=== PATIENT | female | born 1990 | race Caucasian/White ===

== ENCOUNTER 2020-02-29 20:28 | Inpatient (IN) ==
[2020-02-29] MEDS ORDERED: ONDANSETRON 4 MG/2 ML VIAL IV ONE (20:47)
[2020-02-29] MEDS ORDERED: BUTORPHANOL 2 MG/ML VIAL IV ONE (20:47)
[2020-02-29] MEDS ORDERED: TERBUTALINE 1 MG/1 ML VIAL SUBCUT ONE (20:47)
[2020-02-29] MEDS ORDERED: TERBUTALINE 1 MG/1 ML VIAL ONE (20:51)
[2020-02-29 20:53] LABS: Apearance,Urine CLEAR (Clear); Bilirubin,Urine Negative (Negative); Blood, Urine Moderate mg/dL (Negative); Glucose,Urine (UA) Negative (Negative); Ketones,Urine Negative (Negative); Nitrite,Urine Negative (Negative); Protein,Urine Negative; RBC,Urine 19 /HPF (0-4); Squamous Epithelial Cell,Urine Occasional /HPF (0-10); Urine Color Yellow (Yellow); Urine Specific Gravity 1.003 (1.001-1.035); Urine Urobilinogen < 2.0 EU/DL (0.2-1.0)
[2020-02-29] MEDS ORDERED: LACTATED RINGERS 1,000 ML IV SCH ×2 (21:00→23:30)
[2020-02-29] MEDS ORDERED: CITRIC ACID/SODIUM CITRATE 30 ML UDCUP PO ONE (21:41)
[2020-02-29] MEDS ORDERED: OXYTOCIN 20 UNIT in SODIUM CHLORIDE 0.9% 1,000 ML IV ONE ×2 (21:41→23:11)
[2020-02-29] MEDS ORDERED: OXYTOCIN 10 UNIT/ML VIAL IM ONE (21:41)
[2020-02-29] MEDS ORDERED: FAMOTIDINE 20 MG/2 ML VIAL IV ONE (21:41)
[2020-02-29] MEDS ORDERED: OXYTOCIN/LR 30 UNIT/1,000 ML BAG IV ONE (21:41)
[2020-02-29] MEDS ORDERED: CLINDAMYCIN INJ 900 MG in PREMIX 1 EACH IV ONE (21:42)
[2020-02-29 21:59] LABS: Basophils % 0.2 % (0.0-0.8); Eosinophils # 0.1 10*3/uL (0.0-0.87); Eosinophils % 0.4 % (0.00-10.9); Hematocrit 34.7 VOL% (35.7-47.0); Hemoglobin 11.1 GM/DL (12.0-16.0); Immature Granulocytes % 0.6 %; Immature Granulocytes Absolute 0.09 #; Lymphocytes # 4.1 10*3/uL (1.4-4.0); Lymphocytes % 25.6 % (21.3-54.2); Mean Corpuscular Volume 91.1 FL (87-102); Monocytes % 5.2 % (1.7-12.7); Platelet Count 258 T/CUMM (130-400); Red Blood Count 3.81 MC/CUMM (3.8-5.5); Red Cell Distribution Width 12.4 % (9.3-17.3); White Blood Count 16.1 T/CUMM (4-12)
[2020-02-29 22:18] LABS: Albumin 2.5 G/DL (3.4-5.0); Bilirubin,Total 0.5 MG/DL (0.2-1.0); Calcium 8.5 MG/DL (8.5-10.1); Osmolality,Calculated 272.5 MOS/KG (273-304); Total Protein 6.2 G/DL (6.4-8.3)
[2020-02-29 22:22] LABS: Barbiturates Screen,Urine Negative (Negative); Benzodiazepines Screen,Urine Negative (Negative); Cannabinoid Screen,Urine Negative (Negative); Opiate Screen,Urine Negative (Negative); Phencyclidine Screen,Urine Negative (Negative)
[2020-02-29] MEDS ORDERED: ACETAMINOPHEN 325 MG TABLET PO PRN (23:11)
[2020-02-29] MEDS ORDERED: RHO(D) IMMUNE GLOBULIN 300 MCG SYRINGE IM ONE (23:11)
[2020-02-29] MEDS ORDERED: SIMETHICONE CHEW 80 MG TABLET PO PRN (23:11)
[2020-02-29] MEDS ORDERED: ONDANSETRON 4 MG/2 ML VIAL IV PRN (23:11)
[2020-02-29] MEDS ORDERED: MAGNESIUM HYDROXIDE SUSP 30 ML UDCUP PO PRN (23:11)
[2020-02-29 23:15] LABS: Apearance,Urine CLEAR (Clear); Bilirubin,Urine Negative (Negative); Blood, Urine Negative (Negative); Glucose,Urine (UA) Negative (Negative); Ketones,Urine Negative (Negative); Nitrite,Urine Negative (Negative); Protein,Urine Negative; RBC,Urine <1 /HPF (0-4); Urine Color Straw (Yellow); Urine Specific Gravity 1.001 (1.001-1.035); Urine Urobilinogen < 2.0 EU/DL (0.2-1.0); WBC,Urine <1 /HPF (0-6)
[2020-02-29] MEDS ORDERED: MIDAZOLAM 2 MG/2 ML VIAL ONE (23:20)
[2020-02-29] MEDS ORDERED: BUPIVACAINE SPINAL 0.75% 2 ML AMP SPINAL ONE (23:20)
[2020-02-29] MEDS ORDERED: MORPHINE 10 MG/10 ML VIAL ONE (23:20)
[2020-02-29] MEDS ORDERED: ONDANSETRON 4 MG/2 ML VIAL ONE (23:20)
[2020-02-29] MEDS ORDERED: propofoL 200 MG/20 ML VIAL IV ONE (23:20)
[2020-02-29] MEDS ORDERED: PROMETHAZINE 25 MG/1 ML VIAL ONE (23:20)
[2020-02-29 23:21] LABS: Cord Arterial Blood HCO3 23.7 MMOL/L
[2020-02-29] MEDS ORDERED: PHENYLEPHRINE 1 MG/10 ML SYRINGE IV ONE (23:21)
[2020-02-29] MEDS ORDERED: KETOROLAC 30 MG/1 ML VIAL ONE (23:21)
[2020-02-29] MEDS ORDERED: LACTATED RINGERS 1,000 ML IV ONE (23:21)
[2020-02-29 23:24] LABS: Cord Venous Blood HCO3 24.5 MMOL/L; Cord Venous Blood PCO2 45.2 MMHG; Cord Venous Blood PO2 32.9
[2020-03-01] MEDS ORDERED: OXYTOCIN/LR 20 UNIT/1,000 ML BAG IV ONE (00:57)
[2020-03-01] MEDS ORDERED: KETOROLAC 30 MG/1 ML VIAL IV PRN (01:45)
[2020-03-01 02:54] LABS: Band Neutrophils 1 % (0-10); Eosinophils 1 % (0-10); Lymphocytes 21 % (20-55); Segmented Neutrophils 71 % (50-85)
[2020-03-01 02:55] LABS: Atypical Lymphocytes Few; Hypochromasia 1+; Platelet Estimate Normal; Polychromasia Few
[2020-03-01 02:56] LABS: Total Cells Counted 100
[2020-03-01] MEDS: CLINDAMYCIN INJ 50 ML IV SCH ×2 (05:59→14:35)
[2020-03-01 07:50] LABS: Basophils % 0.3 % (0.0-0.8); Eosinophils # 0.1 10*3/uL (0.0-0.87); Eosinophils % 0.4 % (0.00-10.9); Hematocrit 27.9 VOL% (35.7-47.0); Immature Granulocytes % 0.4 %; Immature Granulocytes Absolute 0.06 #; Lymphocytes # 3.9 10*3/uL (1.4-4.0); Lymphocytes % 26.7 % (21.3-54.2); Mean Corpuscular HGB Conc 32.6 GM/DL (32-36); Mean Corpuscular Volume 92.4 FL (87-102); Mean Platelet Volume 11.2 FL (9.6-12.0); Monocytes % 6.6 % (1.7-12.7); Neutrophils % 65.6 % (38.7-73.9); Red Cell Distribution Width 12.3 % (9.3-17.3); White Blood Count 14.6 T/CUMM (4-12)
[2020-03-01 07:51] LABS: Hemoglobin 9.1 GM/DL (12.0-16.0); Platelet Count 205 T/CUMM (130-400); Red Blood Count 3.02 MC/CUMM (3.8-5.5)
[2020-03-01 08:32] LABS: Hypochromasia 1+; Ovalocytes Slight; Platelet Estimate Adequate
[2020-03-01] MEDS: MULTIVITAMIN (PRENATAL) TABLET PO SCH (09:30)
[2020-03-01] MEDS: DOCUSATE SODIUM 100 MG CAPSULE PO SCH ×2 (09:30→21:00)
[2020-03-01] MEDS: METOCLOPRAMIDE 10 MG TABLET PO SCH ×2 (11:17→17:00)
[2020-03-01 14:48] LABS: Basophils % 0.1 % (0.0-0.8); Eosinophils # 0.1 10*3/uL (0.0-0.87); Eosinophils % 0.5 % (0.00-10.9); Hematocrit 29.8 VOL% (35.7-47.0); Hemoglobin 9.7 GM/DL (12.0-16.0); Immature Granulocytes % 0.4 %; Immature Granulocytes Absolute 0.05 #; Lymphocytes # 2.2 10*3/uL (1.4-4.0); Lymphocytes % 16.6 % (21.3-54.2); Mean Corpuscular HGB Conc 32.6 GM/DL (32-36); Mean Corpuscular Volume 91.1 FL (87-102); Mean Platelet Volume 11.3 FL (9.6-12.0); Monocytes % 6.5 % (1.7-12.7); Neutrophils % 75.9 % (38.7-73.9); Platelet Count 219 T/CUMM (130-400); Red Blood Count 3.27 MC/CUMM (3.8-5.5); Red Cell Distribution Width 12.4 % (9.3-17.3); White Blood Count 13.5 T/CUMM (4-12)
[2020-03-01] MEDS: IBUPROFEN 800 MG TABLET PO PRN (17:30)
[2020-03-02] MEDS: METOCLOPRAMIDE 10 MG TABLET PO SCH (01:35)
[2020-03-02 07:30] VITALS: BP 113/68
[2020-03-02] MEDS: MULTIVITAMIN (PRENATAL) TABLET PO SCH (08:44)
[2020-03-02] MEDS: IBUPROFEN 800 MG TABLET PO PRN (08:44)
[2020-03-02] MEDS: DOCUSATE SODIUM 100 MG CAPSULE PO SCH (08:44)
== END 2020-03-02 12:40 | disposition home or self-care (01) | DRG 540 ==
LOC: N.LDOUT 20:28 → N.LD 20:31 → N.OB 03-01 01:30
PROVIDERS: ADMIT Obstetrics & Gynecology; ATTEND Obstetrics & Gynecology

== ENCOUNTER 2020-12-05 10:33 | Inpatient (IN) ==
[2020-11-28 12:32] LABS: Bacteria,Urine Occasional /HPF (Few); Bilirubin,Urine Negative (Negative); Blood, Urine Negative (Negative); Glucose,Urine (UA) Negative (Negative); Ketones,Urine Negative (Negative); Mucus,Urine Occasional /LPF (Occasional); Nitrite,Urine Negative (Negative); Protein,Urine Negative; RBC,Urine 1 /HPF (0-4); Squamous Epithelial Cell,Urine Occasional /HPF (0-10); Urine Appearance Slightly Hazy (Clear); Urine Color Yellow (Yellow); Urine Specific Gravity 1.019 (1.001-1.035); Urine Urobilinogen < 2.0 EU/DL (0.2-1.0); WBC,Urine 1 /HPF (0-6)
[2020-11-28 12:43] LABS: Basophils % 0.4 % (0.0-0.8); Eosinophils # 0.2 10*3/uL (0.0-0.87); Eosinophils % 1.6 % (0.00-10.9); Hematocrit 44.3 VOL% (35.7-47.0); Hemoglobin 14.6 GM/DL (12.0-16.0); Immature Granulocytes % 0.5 %; Immature Granulocytes Absolute 0.05 #; Lymphocytes # 2.1 10*3/uL (1.4-4.0); Lymphocytes % 20.4 % (21.3-54.2); Mean Corpuscular Volume 93.3 FL (87-102); Mean Platelet Volume 10.3 FL (9.6-12.0); Monocytes % 4.9 % (1.7-12.7); Neutrophils % 72.2 % (38.7-73.9); Platelet Count 339 T/CUMM (130-400); Red Blood Count 4.75 MC/CUMM (3.8-5.5); White Blood Count 10.1 T/CUMM (4-12)
[2020-11-28 13:19] LABS: Albumin 3.8 G/DL (3.4-5.0); Bilirubin,Total 0.7 MG/DL (0.2-1.0); Osmolality,Calculated 276.5 MOS/KG (273-304); Potassium 4.1 MMOL/L (3.5-5.1); Risk Ratio 3.72
[~2020-12-05 10:33] MED LIST: AMPICILLIN/SULBACTAM 3,000 MG in SODIUM CHLORIDE 0.9% 100 ML IV ONE; CLINDAMYCIN INJ 900 MG in PREMIX 1 EACH IV ONE; LACTATED RINGERS 1,000 ML IV SCH; LEVOFLOXACIN INJ 500 MG in PREMIX 1 EACH IV ONE
[2020-12-05] MEDS ORDERED: ACETAMINOPHEN 500 MG TABLET PO ONE (11:01)
[2020-12-05] MEDS ORDERED: FAMOTIDINE 20 MG TABLET PO ONE (11:01)
[2020-12-05] MEDS ORDERED: DIAZEPAM 5 MG TABLET PO ONE (11:01)
[2020-12-05] MEDS ORDERED: ALBUTEROL/IPRATROPIUM 3 ML NEB RESP TX ONE (11:01)
[2020-12-05] MEDS ORDERED: fentaNYL 100 MCG/2 ML VIAL ONE ×2 (13:07→14:40)
[2020-12-05] MEDS ORDERED: MIDAZOLAM 2 MG/2 ML VIAL ONE (13:07)
[2020-12-05] MEDS ORDERED: BUPIVACAINE 0.25% 50 ML VIAL ONE (13:09)
[2020-12-05] MEDS ORDERED: ONDANSETRON 4 MG/2 ML VIAL ONE ×2 (13:41→14:37)
[2020-12-05] MEDS ORDERED: LIDOCAINE 2% 5 ML VIAL ONE (14:37)
[2020-12-05] MEDS ORDERED: propofoL 200 MG/20 ML VIAL IV ONE (14:37)
[2020-12-05] MEDS ORDERED: DEXAMETHASONE 4 MG/1 ML VIAL ONE (14:37)
[2020-12-05] MEDS ORDERED: SEVOFLURANE 1 UNIT/15 MINUTE INH ONE (14:37)
[2020-12-05] MEDS ORDERED: LACTATED RINGERS 1,000 ML IV ONE (14:37)
[2020-12-05] MEDS ORDERED: ROCURONIUM 50 MG/5 ML VIAL IV ONE (14:37)
[2020-12-05] MEDS ORDERED: PROMETHAZINE 25 MG/1 ML VIAL ONE (14:54)
[2020-12-05] MEDS ORDERED: GLYCOPYRROLATE 0.4 MG/2 ML VIAL ONE (15:41)
[2020-12-05] MEDS ORDERED: NEOSTIGMINE 10 MG/10 ML VIAL ONE (15:41)
[2020-12-05 16:00] LABS: Bacteria,Urine Occasional /HPF (Few); Bilirubin,Urine Negative (Negative); Blood, Urine Negative (Negative); Glucose,Urine (UA) Negative (Negative); Ketones,Urine Negative (Negative); Mucus,Urine Occasional /LPF (Occasional); Nitrite,Urine Negative (Negative); Protein,Urine Negative; RBC,Urine <1 /HPF (0-4); Squamous Epithelial Cell,Urine Occasional /HPF (0-10); Urine Appearance CLEAR (Clear); Urine Color Yellow (Yellow); Urine Urobilinogen < 2.0 EU/DL (0.2-1.0); WBC,Urine <1 /HPF (0-6)
[2020-12-05] MEDS ORDERED: HYDROmorphone 2 MG/1 ML VIAL IV PRN ×2 (16:01→16:12)
[2020-12-05] MEDS ORDERED: diphenhydrAMINE 50 MG/1 ML VIAL IV PRN (16:01)
[2020-12-05] MEDS ORDERED: PROMETHAZINE INJ 25 MG in SODIUM CHLORIDE 0.9% 50 ML IV PRN (16:01)
[2020-12-05] MEDS ORDERED: ONDANSETRON 4 MG/2 ML VIAL IV PRN (16:01)
[2020-12-05] MEDS ORDERED: MEPERIDINE 25 MG/1 ML VIAL IV PRN (16:01)
[2020-12-05] MEDS ORDERED: ACETAMINOPHEN 325 MG TABLET PO PRN (16:10)
[2020-12-05] MEDS ORDERED: BENZOCAINE/MENTHOL LOZENGE 18/BOX PO PRN (16:10)
[2020-12-05] MEDS ORDERED: MAGNESIUM HYDROXIDE SUSP 30 ML UDCUP PO PRN (16:10)
[2020-12-05] MEDS ORDERED: BISACODYL 10 MG SUPP RECTAL PRN (16:10)
[2020-12-05] MEDS ORDERED: METOCLOPRAMIDE 10 MG/2 ML VIAL ONE (16:11)
[2020-12-05] MEDS ORDERED: LORazepam 2 MG/1 ML VIAL ONE (16:15)
[2020-12-05] MEDS: LACTATED RINGERS 1,000 ML IV SCH ×2 (16:27→18:34)
[2020-12-05] MEDS ORDERED: LORazepam 2 MG/1 ML VIAL IV ONE (16:28)
[2020-12-05] MEDS ORDERED: METOCLOPRAMIDE 10 MG/2 ML VIAL IV ONE (16:28)
[2020-12-05] MEDS: MEPERIDINE 50 MG/1 ML VIAL IV PRN ×2 (18:13→21:41)
[2020-12-05] MEDS: ONDANSETRON 4 MG/2 ML VIAL IV PRN ×2 (18:14→21:50)
[2020-12-05] MEDS: CLINDAMYCIN INJ 900 MG in PREMIX 1 EACH IV SCH (23:43)
[2020-12-06] MEDS: IBUPROFEN 800 MG TABLET PO PRN ×3 (02:09→16:47)
[2020-12-06] MEDS: LACTATED RINGERS 1,000 ML IV SCH (04:20)
[2020-12-06 05:56] LABS: Basophils % 0.1 % (0.0-0.8); Hematocrit 34.3 VOL% (35.7-47.0); Hemoglobin 11.6 GM/DL (12.0-16.0); Immature Granulocytes % 0.6 %; Immature Granulocytes Absolute 0.11 #; Lymphocytes # 0.9 10*3/uL (1.4-4.0); Lymphocytes % 4.6 % (21.3-54.2); Mean Corpuscular HGB Conc 33.8 GM/DL (32-36); Mean Corpuscular Volume 91.7 FL (87-102); Monocytes % 6.9 % (1.7-12.7); Neutrophils % 87.8 % (38.7-73.9); Platelet Count 275 T/CUMM (130-400); Red Blood Count 3.74 MC/CUMM (3.8-5.5); Red Cell Distribution Width 13.8 % (9.3-17.3); White Blood Count 19.2 T/CUMM (4-12)
[2020-12-06 06:19] LABS: Band Neutrophils 3 % (0-10); Lymphocytes 4 % (20-55); Segmented Neutrophils 84 % (50-85); Total Cells Counted 100
[2020-12-06 06:20] LABS: Hypochromasia 1+; Microcytosis 1+; Ovalocytes Slight; Platelet Estimate Normal
[2020-12-06] MEDS: CLINDAMYCIN INJ 900 MG in PREMIX 1 EACH IV SCH (06:39)
[2020-12-06] MEDS: METOCLOPRAMIDE 10 MG TABLET PO SCH ×3 (09:00→23:01)
[2020-12-06] MEDS: DOCUSATE SODIUM 100 MG CAPSULE PO PRN ×2 (09:00→20:54)
[2020-12-06] MEDS ORDERED: oxyCODONE/ACETAMINOPHEN 5-325 MG TABLET ONE (09:19)
[2020-12-06] MEDS: oxyCODONE/ACETAMINOPHEN 5-325 MG TABLET PO PRN ×3 (09:26→23:01)
[2020-12-06] MEDS ORDERED: NICOTINE 14 MG/24 HR PATCH TRANSDERM SCH (12:12)
[2020-12-06] MEDS: ALBUTEROL 1.25 MG/3 ML NEB RESP TX SCH ×2 (16:17→20:03)
[2020-12-07] MEDS: ALBUTEROL 1.25 MG/3 ML NEB RESP TX SCH ×2 (02:18→08:07)
[2020-12-07] MEDS: IBUPROFEN 800 MG TABLET PO PRN (03:57)
[2020-12-07 07:31] VITALS: BP 108/67
[2020-12-07] MEDS: DOCUSATE SODIUM 100 MG CAPSULE PO PRN (07:31)
[2020-12-07] MEDS: METOCLOPRAMIDE 10 MG TABLET PO SCH (07:31)
[2020-12-07] MEDS: ONDANSETRON 4 MG/2 ML VIAL IV PRN (07:38)
== END 2020-12-07 11:05 | disposition home or self-care (01) | DRG 513 ==
LOC: N.OR 10:33 → N.OB 10:34 → N.SDSINP 10:36 → EDSTATUS 13:30
PROVIDERS: ADMIT Obstetrics & Gynecology; ATTEND Obstetrics & Gynecology